=== PATIENT | female | born 1955 | race Caucasian/White ===

== ENCOUNTER 2021-02-23 11:41 | Day surgery (SDC) | payer OTHER ==
[2021-02-17 11:23] VITALS: BMI 45.2
[2021-02-23] MEDS ORDERED: BUPIVACAINE HCL 100 ML ONE ×2 (14:16→15:49)
[2021-02-23] MEDS ORDERED: PROPOFOL 20 ML ONE (15:22)
[2021-02-23] MEDS ORDERED: DEXAMETHASONE SOD PHOSPHATE 4 MG/1 ML VIAL ONE (15:22)
[2021-02-23] MEDS ORDERED: ONDANSETRON 4 MG/2 ML VIAL ONE (15:22)
[2021-02-23] MEDS ORDERED: LIDOCAINE HCL 2% JELLY (5 ML/TUBE) ONE (15:22)
[2021-02-23] MEDS ORDERED: KETOROLAC TROMETHAMINE 30 MG/1 ML VIAL ONE (15:22)
[2021-02-23] MEDS ORDERED: LIDOCAINE HCL/PF 2% SDV 5ML VIAL ONE (15:22)
[2021-02-23] MEDS ORDERED: MIDAZOLAM HCL 2 MG/2 ML SINGLE DOSE VIAL ONE (15:23)
[2021-02-23] MEDS ORDERED: ceFAZolin SODIUM 1 GM VIAL ONE (15:37)
[2021-02-23] MEDS ORDERED: oxyCODONE HCL 5 MG TABLET PO PRN ×3 (16:00→16:34)
[2021-02-23] MEDS ORDERED: PROMETHAZINE HCL 25 MG/1 ML VIAL IVPUSH PRN ×2 (16:00→16:34)
[2021-02-23] MEDS ORDERED: ONDANSETRON 4 MG/2 ML VIAL IVPUSH PRN ×2 (16:00→16:34)
[2021-02-23] MEDS ORDERED: LACTATED RINGERS SOLUTION 1,000 ML IV SCH (16:00)
[2021-02-23] MEDS ORDERED: ACETAMINOPHEN 1000 MG/100 ML VIAL (NON FORMULARY) IVPB ONE (16:01)
[2021-02-23] MEDS ORDERED: MORPHINE SULFATE 10 MG/1 ML *VIAL ONE (16:08)
[2021-02-23] MEDS ORDERED: ACETAMINOPHEN INJECTION 100 ML IVPB ONE (16:58)
[2021-02-23 17:42] VITALS: TEMP 98
[2021-02-23] MEDS ORDERED: oxyCODONE HCL 5 MG TABLET ONE (17:50)
[2021-02-23 18:44] VITALS: BP 128/62; PULSE 66
== END 2021-02-23 18:46 | disposition home or self-care (01) ==
LOC: FASU 11:41
PROVIDERS: ATTEND Orthopaedic Surgery
PROC: 0SBD4ZZ Excision of Left Knee Joint, Percutaneous Endoscopic Approach (ICD-10-PCS; 2021-02-23)
PROC: 0SBD4ZZ Excision of Left Knee Joint, Percutaneous Endoscopic Approach (ICD-10-PCS; 2021-02-23)
PROC: 0SBD4ZZ Excision of Left Knee Joint, Percutaneous Endoscopic Approach (ICD-10-PCS; principal; 2021-02-23 15:48)
DX: S83.242A Other tear of medial meniscus, current injury, left knee, initial encounter (principal); S83.282A Other tear of lateral meniscus, current injury, left knee, initial encounter; M25.662 Stiffness of left knee, not elsewhere classified; M94.262 Chondromalacia, left knee; M25.862 Other specified joint disorders, left knee; M67.262 Synovial hypertrophy, not elsewhere classified, left lower leg
CPT/HCPCS: 29880; G0289; 94760; J0131